=== PATIENT | male | born 1995 | race Caucasian/White ===

== ENCOUNTER 2021-09-03 17:15 | Emergency (ER) | payer SELFPAY ==
[2021-09-03 17:17] VITALS: BP 175/93; PULSE 92; RESP 16; TEMP 36.5; O2SAT 95; BMI 31.3
--- NOTE | 2021-09-03 17:19 | CT_ITS ---
EXAMINATION : Head CT w/out contrast HISTORY : headache. 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 TECHNIQUE : Multiple contiguous axial images were obtained from the skull base to the vertex without intravenous contrast. A radiation dose optimization technique was used for this scan. FINDINGS : The ventricles and sulci are normal in size. There is no evidence for acute intracranial hemorrhage, mass effect, or midline shift. There is no extra-axial fluid collection. There is normal campbell-white differentiation, without CT evidence of acute ischemia or infarct. The skull base and calvarium are unremarkable. The orbits are unremarkable. The paranasal sinuses are clear. The mastoid air cells are well-aerated. The soft tissues are unremarkable. CT/Brain/Head without Contrast IMPRESSION: No acute intracranial abnormality. Electronically Signed: Daniel Vanessa MD at 17:54 EDT ,
[2021-09-03] MEDS: Tetracaine 0.5% Ophthalmic Bottle 1 DRP LEFT EYE (17:30)
[2021-09-03] MEDS: Fluorescein 1 MG STRIP 1 STRIP LEFT EYE (17:31)
--- NOTE | 2021-09-03 17:51 | EX.ED.DYSGE1 ---
HPI <JUVENAL Callahan - Last Filed: 09/03/21 18:19> History of Present Illness Chief Complaint: Headache Narrative Narrative: 26-year-old male with no significant medical history presents the emergency department with left eye pain. Patient states he took a nap after work, woke up, had vision changes to his left eye, he then had pain to his left eye and had difficulty opening it. Patient states that this developed a headache to the left side. He was unable to open his eye due to the pain, he was light sensitive. Patient denies any known injury. States he was fine when he woke up after the nap however when he did not have any vision he rubbed it very aggressively. He states that his vision is back however is slightly blurry. However his eye, nose is running. PFSH <JUVENAL Callahan - Last Filed: 09/03/21 18:19> [facility] Medical History no medical history Home Medications No Known/Unobtainable [No Known Home Medications] 06/10/16 [History Last Taken Unknown] Allergy/AdvReac Type Severity Reaction Status Date / Time No Known Allergies Allergy Verified 06/10/16 13:29 Social History Smoking Status: Never smoker ROS <JUVENAL Callahan - Last Filed: 09/03/21 18:19> ROS ED ROS Narrative Constitutional: Negative for fever, chills, weight loss, weakness Eyes: Negative for double vision. Positive for vision change, left eye pain ENT: Negative for any sore throat, ear pain, congestion Cardiovascular: Negative for any chest pain, tightness, palpitations Respiratory: Negative for any cough, sputum production, hemoptysis, dyspnea, dyspnea on exertion, orthopnea Gastrointestinal: Negative for any abdominal pain, nausea, vomiting, diarrhea, constipation, blood in stool, blood in vomit : Negative for any urinary frequency, dysuria, retention, blood in urine Muscle skeletal: Negative for any muscle joint pain, stiffness, myalgias, arthralgias, neck pain, back pain Neurological: Negative for any headache, syncope, numbness or tingling, dizziness Skin: Negative for any rashes, lumps, itching, abrasions, lacerations Psychiatric: Negative for any depression, anxiety, stress, suicidal ideation, homicidal ideation Hematologic: Negative for any easy bruising, excessive bruising, easy bleeding Allergies: Negative for any eczema, hives, rash EXAM <JUVENAL Callahan - Last Filed: 09/03/21 18:19> Physical Exam Narrative Exam Narrative: Vital signs reviewed. HEET: Head normocephalic atraumatic, TMs clear bilaterally. Posterior pharynx is clear, moist mucous membranes. Nares clear bilaterally. Pupils are equal round reactive light, patient was unable to open his left eye secondary to pain. I did administer tetracaine to the left eye, immediately after initially tetracaine, patient was able to open his eye, patient's left-sided headache decreased, he states that this helped him immensely. I did fluorescein the left eye showing small corneal abrasion to the 3:00 area. No foreign body seen. Optic pressures were taken, pressure was normal with 13. Visual acuity was completed. Neck: Supple with no lymphadenopathy or tenderness. No signs of meningismus, negative jolt sign. Cardiac: Regular rate and rhythm no murmurs gallops or rubs, equal peripheral pulses bilaterally. Respiratory: Lungs clear to auscultation bilaterally. No chest tenderness. Abdomen: Soft, nontender, nondistended. No abdominal bruit or pulsatile masses. No hepatosplenomegaly Extremities: No peripheral edema, no signs of gross trauma or deformity. Active full range of motion of all extremities. Neuro: Cranial nerves II through XII intact, no focal neurological deficits. Skin: Clean dry and intact with no rash, purpura, petechiae, vesicles or pustules. Backs/flank: No CVA tenderness, no midline spinal tenderness, no deformity. Psych: Normal mood and affect. No SI, HI or acute psychosis. Const Vital Signs: 09/03/21 17:17 Temperature 97.7 F L Temperature Source Oral Pulse Rate 92 Respiratory Rate 16 Blood Pressure 175/93 H Blood Pressure Mean 120 Pulse Ox 95 Oxygen Delivery Method Room Air Positive well nourished and well developed General Appearance ED: well developed <Dr. Juancho Krishnamurthy, DO - Last Filed: 09/03/21 18:26> Physical Exam Const Vital Signs: 09/03/21 17:17 Temperature 97.7 F L Temperature Source Oral Pulse Rate 92 Respiratory Rate 16 Blood Pressure 175/93 H Blood Pressure Mean 120 Pulse Ox 95 Oxygen Delivery Method Room Air MDM <JUVENAL Callahan - Last Filed: 09/03/21 18:19> [facility] Narrative Medical decision making narrative: Patient appears to be in minor distress secondary to left eye pain on upon arrival. Upon initial examination, CT was ordered secondary to the patient states he losing vision in his left eye. However after tetracaine administration, patient immediately had relief, was able open his eye, his headache became markedly improved. Patient did receive a CT scan of the brain this showed no acute intercranial abnormality. The patient's optic pressure was checked, it was 13 which is normal. Patient did receive fluorescein staining, there was a corneal abrasion to the 3:00 section of the eye. Visual acuity was completed, patient was given erythromycin ointment and will continue this 4 times a day for 5 days. He will receive ophthalmology follow-up, instructed return for any worsening eye pain, fever chills nausea vomiting. At this time, there is no evidence of any stroke, CVA, glaucoma. Patient be diagnosed with 1. Left eye corneal abrasion Lab Data Attestation: I reviewed the patient's lab results. Radiography Diagnostic Testing: Clinical Impression(s) from Imaging Studies Brain CT 09/03/21 17:19 IMPRESSION: No acute intracranial abnormality. Electronically Signed: Daniel Vanessa MD at 17:54 EDT , <Dr. Juancho Krishnamurthy, DO - Last Filed: 09/03/21 18:26> [facility] Narrative Medical decision making narrative: I have personally performed a face to face assessment of the patient and have reviewed the BRIAN Note. I performed a substantive portion of the visit including all aspects of the following. My veliz findings include: History: Patient presents with headache and left eye pain that began today. Patient states he woke up and was having pain in his left eye. Patient was having difficulty opening his left eye due to the pain. Patient does not think there is any trauma or foreign body to the left eye. Patient admits to headache over the left side of his head. Patient denies any fevers or chills. Patient denies any nausea or vomiting. Exam: Vital signs are stable. Patient is afebrile. Patient is in no acute distress. Pupils are equal, round, and reactive to light bilaterally. Extraocular muscles are intact. Conjunctiva is clear. There are no foreign bodies noted. There is a corneal abrasion noted. Medical Decision Making: CT scan of the brain was obtained. There is no acute intracranial abnormality. This was interpreted by the radiologist and reviewed by myself. Tetracaine and fluorescein dye was applied. Intraocular pressure was measured at 13. Patient was given a dose of erythromycin ophthalmic ointment here. Patient was instructed to apply this 4 times daily while awake. Patient understood and was agreeable with the plan. All questions were answered. Radiography Diagnostic Testing: Clinical Impression(s) from Imaging Studies Brain CT 09/03/21 17:19 IMPRESSION: No acute intracranial abnormality. Electronically Signed: Danile Vanessa MD at 17:54 EDT , Discharge Plan Triage Chief Complaint: Headache ED Midlevel Provider: Manoj Wooten ED Provider: Juancho Krishnamurthy Dx/Rx/DC Orders Clinical Impression: Abrasion, corneal Instructions: Corneal Injury Prescriptions: No Action No Known Home Medications RF: 0 Primary Care Provider: Care Physician,No Primary Referrals: Arturo Lorenzo MD [STAFF PHYSICIAN] - Care Physician,No Primary [Primary Care Provider] - Activity Restrictions/Additional Instructions: Use the erythromycin ointment 4 times a day for 5 days. You need to follow-up with ophthalmology. Return for any worsening symptoms. Print Language: [place] Disposition Disposition: Home, Self Care Discharge Date/Time: 09/03/21 18:25
[2021-09-03] MEDS: Erythromycin Ophthalmic (NSY) 1 GM OPTH.TUBE 1 APPLIC LEFT EYE (17:57)
--- NOTE | 2021-09-03 18:02 | NURSING ---
pt feeling better afterr tetracaine in. teaching given on eye opthalmic ointment
== END 2021-09-03 18:25 | disposition home or self-care (01) ==
PROVIDERS: Emergency Provider Emergency Medicine; Visit Provider Emergency Medicine
DX: S05.00XA Injury of conjunctiva and corneal abrasion without foreign body, unspecified eye, initial encounter (principal); R51.9 Headache, unspecified; X58.XXXA Exposure to other specified factors, initial encounter
CPT/HCPCS: 70450; 99282

== ENCOUNTER 2021-10-19 11:23 | Emergency (ER) | payer OTHER, SELFPAY ==
[2021-10-19 11:24] VITALS: BP 148/88; PULSE 84; RESP 16; TEMP 36.6; O2SAT 98; BMI 32.2
--- NOTE | 2021-10-19 11:27 | ED.RN ---
PT MANDATORY DRUG TESTING COMPLETED PRIOR TO ARRIVAL AT [facility] PER [facility]
--- NOTE | 2021-10-19 11:39 | CT_ITS ---
STUDY: CT ABDOMEN AND PELVIS WITHOUT CONTRAST REASON FOR EXAM: Male, 26 years old. Anterior abdominal wall injury. RADIATION DOSAGE (If Supplied By Facility): CTDIvol = ( 20.31 ) mGy, DLP = ( 1222.71 ) mGycm TECHNIQUE: Transaxial images were obtained from the dome of the diaphragm to the symphysis pubis without oral contrast, and without intravenous contrast. Sagittal and coronal images were reconstructed. Individualized dose optimization techniques were used for this CT. COMPARISON: None. FINDINGS: The visualized lung bases are unremarkable. The visualized portions of the heart are within normal limits. There is decreased attenuation of the liver consistent with steatosis. Normal gallbladder and extrahepatic biliary system. Normal spleen. Normal pancreas. Normal bilateral adrenal glands. Normal right kidney. Normal left kidney. Normal visualized stomach. Normal small intestine. Normal colon. The appendix is visualized and appears normal. Normal abdominal aorta. Normal inferior vena cava. Normal retroperitoneum. Normal urinary bladder. Normal abdominal wall. Normal osseous structures. CT/Abdomen/Pelvis without Cont IMPRESSION: Fatty infiltration of the liver. Electronically Signed: Eric Jasso MD at 12:30 EDT ,
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
[2021-10-19] MEDS: Ondansetron ODT 4 MG Tablet PO (11:54)
[2021-10-19] MEDS: Naproxen 500 MG Tablet PO (11:54)
== END 2021-10-19 13:36 | disposition home or self-care (01) ==
PROVIDERS: Emergency Provider Emergency Medicine; Visit Provider Emergency Medicine
DX: S30.1XXA Contusion of abdominal wall, initial encounter (principal); R19.7 Diarrhea, unspecified; W31.89XA Contact with other specified machinery, initial encounter; Y99.0 Civilian activity done for income or pay
CPT/HCPCS: 74176; 99284

== ENCOUNTER 2021-10-21 11:24 | Emergency (ER) | payer OTHER, SELFPAY ==
[2021-10-21 11:25] VITALS: BP 147/80; PULSE 98; RESP 14; TEMP 36.2; O2SAT 94; BMI 34.6
[2021-10-21] MEDS: Ondansetron 4 MG/2 ML Vial IV (12:26)
[2021-10-21] MEDS: Ketorolac 15 MG/ML Vial IV (12:26)
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
[2021-10-21 12:43] LABS: Absolute Lymphocyte Count 2.03 X10^3/uL (0.83-4.51); Absolute Neutrophil Count 3.5 X10^3/uL (2.0-7.7); Basophil# 0.03 X10^3/uL; Basophil% 0.5 % (0-1); Eosinophil# 0.05 X10^3/uL; Eosinophils% 0.8 % (0-5); Hematocrit 42.5 % (40-54); Hemoglobin 14.9 g/dL (13.0-16.5); Lymphocyte # 2.03 X10^3/ul (0.83-4.51); Lymphocyte % 34.1 % (19-41); Mean Corp Hgb Conc 35.1 g/dL (32-36); Mean Corpuscular Hgb 30.4 pg (27.0-32.0); Mean Corpuscular Volume 86.7 fL (80-94); Mean Platelet Vol. 10.6 fl (6.2-12.0); Monocyte# 0.36 X10^3/uL; Monocyte% 6.1 % (0-10); NRBC Flagged by Analyzer 0 % (0-5); Neutrophil # 3.46 X10^3/uL (2.7-7.7); Neutrophil % 58.2 % (47-70); Platelet Count 206 K/mm3 (150-450); RBC Distribution Width CV 11.8 % (11.6-14.6); RBC Distribution Width SD 37.3 fl (35.1-43.9)
[2021-10-21 13:01] LABS: ALB/GLOB Ratio 0.9 RATIO (0.9-2.4); AST(SGOT) 24 U/L (15-37); Alanine Aminotransfer ALT/SGPT 64 U/L (16-61); Albumin, Serum 3.7 g/dL (3.2-5.0); Alkaline Phosphatase 50 U/L (45-117); Anion Gap 5 (5-15); BUN 13 mg/dL (7-18); Calcium,Total 9.1 mg/dL (8.5-10.1); Chloride 105 mmol/L (98-107); Creatinine, Serum 1.08 mg/dL (0.70-1.30); EST Glomerular Filtration Rate 89 mL/min (>60); Est Glom Filt Rate - Afr Amer 108 mL/min (>60); Estimated Creatinine Clearance 136.35 ml/min; Globulin 3.9 g/dL (2.2-4.2); Glucose 245 mg/dL (74-106); Potassium 4.1 mmol/L (3.5-5.1); Protein, Total 7.6 g/dL (6.4-8.2); Sodium Level 138 mmol/L (136-145)
[2021-10-21 14:00] VITALS: PULSE 80; RESP 16; O2SAT 97
== END 2021-10-21 14:00 | disposition home or self-care (01) ==
PROVIDERS: Emergency Provider Emergency Medicine; Visit Provider Emergency Medicine
DX: R10.9 Unspecified abdominal pain (principal); T14.90XD Injury, unspecified, subsequent encounter; R73.9 Hyperglycemia, unspecified; E66.9 Obesity, unspecified; Z59.7 Insufficient social insurance and welfare support; Z79.84 Long term (current) use of oral hypoglycemic drugs; X58.XXXD Exposure to other specified factors, subsequent encounter
CPT/HCPCS: 80053; 82274; 85025; 96374; 96375; 99283; A4216; J2405

== ENCOUNTER 2024-04-22 21:42 | Emergency (ER) | payer MEDICAID, SELFPAY ==
[2024-04-22 21:43] VITALS: BP 183/91; PULSE 95; RESP 18; TEMP 36.6; O2SAT 98; BMI 32.9
--- NOTE | 2024-04-22 21:47 | CT_ITS ---
EXAM: CT MAXILLOFACIAL WITHOUT INTRAVENOUS CONTRAST CLINICAL INDICATION: injury TECHNIQUE: Helically acquired images were obtained of the face without intravenous contrast. This CT exam was performed using one or more of the following dose reduction techniques: automated exposure control, adjustment of the mA and/or kV according to patient size, and/or use of iterative reconstruction technique. COMPARISON: No relevant prior studies available. FINDINGS: BONES/JOINTS: Unremarkable. No displaced fracture. No discrete lytic or blastic abnormalities. SOFT TISSUES: Unremarkable. No focal subcutaneous swelling. No discrete fluid collections. ORBITS: Unremarkable. Both globes are unremarkable. Extraocular muscles are normal. Retrobulbar fat appears unremarkable. SINUSES: Unremarkable as visualized. Clear. MASTOID AIR CELLS: Unremarkable as visualized. Clear. DENTAL: No acute findings. No periodontal osseous erosion. CT/Sinus/Facial Bone IMPRESSION: Negative CT facial bones without intravenous contrast. Electronically Signed: Shon Parnell MD at 22:36 EST ,
--- NOTE | 2024-04-22 21:47 | CT_ITS ---
EXAM: CT HEAD WITHOUT INTRAVENOUS CONTRAST CLINICAL INDICATION: head injury TECHNIQUE: Multiple axial images were obtained of the head without intravenous contrast. This CT exam was performed using one or more of the following dose reduction techniques: automated exposure control, adjustment of the mA and/or kV according to patient size, and/or use of iterative reconstruction technique. COMPARISON: 09/03/2021 FINDINGS: BRAIN AND EXTRA-AXIAL SPACES: Unremarkable. No intra- or extra-axial hemorrhage. No evidence of acute infarct. No intracranial mass or mass effect. There is preservation of the casas/white matter interface. Posterior fossa structures are unremarkable. Ventricles are appropriate for age. No hydrocephalus. Basal cisterns are patent. BONES/JOINTS: Unremarkable. No discrete lytic or blastic abnormalities. SINUSES: Unremarkable as visualized. Clear. MASTOID AIR CELLS: Unremarkable. Clear. ORBITS: Visualized globes, extraocular muscles, optic nerves and retrobulbar fat appear unremarkable. CT/Brain/Head without Contrast IMPRESSION: Negative head/brain CT without intravenous contrast. Electronically Signed: Shon Parnell MD at 22:34 EST ,
--- NOTE | 2024-04-22 23:09 | EDS_ITS ---
HPI History of Present Illness Chief Complaint: Head Injury Informant: patient Narrative Narrative: Presents worsening headache blurry vision this morning. No loss of conscious. He had head injury yesterday, hit his head orthodontic assistant him in the basement. States ceilings are low. Did not lose conscious. He was seen at outside hospital he states he had a CT scan that was negative. He had Dermabond placed to his wound. He has had 4 concussions in the past while playing football with worsening symptoms. 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 No nausea or vomiting. No medications taken. Prior similar symptoms: [facility] [place] Medical History Concussion Traumatic brain injury Ascended testicle of both sides Home Medications ?Medication ?Instructions ?Recorded ?Last Taken ?Type metformin 500 mg tablet 500 mg PO DAILY #30 tabs 10/21/21 Unknown Rx Allergy/AdvReac Type Severity Reaction Status Date / Time No Known Allergies Allergy Verified 04/22/24 21:46 Social History household members: significant other Smoking Status: Never smoker substance use type: does not use ROS ROS ED Constitutional Constitutional ED: Denies chills, fever(s) or sweats Eyes Eyes: Reports blurry vision ENT ENT ED: Denies sore throat Cardiovascular Cardiovascular: Denies chest pain, leg edema, palpitations or racing heartbeat Respiratory/Chest Respiratory/Chest: Denies cough, dyspnea or dyspnea on exertion Gastrointestinal Gastrointestinal: Denies abdominal pain, diarrhea, nausea or vomiting Genitourinary Genitourinary ED: Denies dysuria, hematuria or urinary frequency Musculoskeletal Musculoskeletal: Denies back pain, extremity pain or neck pain Integumentary Denies rash or wounds Neurologic Neurologic: Reports headache(s); Denies paresthesias or weakness EXAM Physical Exam Const Vital Signs: 04/22/24 21:43 04/22/24 22:35 Temperature 97.9 F Temperature Source Temporal Pulse Rate 95 Respiratory Rate 18 Respiratory Effort Normal Non-Labored Respiratory Depth Normal Respiratory Pattern Normal Blood Pressure 183/91 H Blood Pressure Mean 121 Pulse Ox 98 Oxygen Delivery Method Room Air Room Air Positive well nourished and well developed Constitutional Narrative: GCS 15. General Appearance ED: well developed and NAD HEENT Reports moist mucous membranes HEENT Narrative: Superficial abrasion right forehead above the brow there is no laceration noted. normocephalic Eyes General Eye ED: Yes normal appearance of both eyes and other Other Details: No hyphema of the eyes. Neck full ROM Neck Narrative: No meningismus. Chest Wall Chest: Negative for tenderness Resp normal respiratory effort and normal air movement Effort and Inspection: symmetric chest movement; Negative for respiratory distress Cardio regular rate, regular rhythm and no murmurs Peripheral Pulses: pulses 2+ throughout GI normal to inspection, nondistended, normoactive bowel sounds and non-tender Palpation: Negative for guarding or rebound tenderness present Extremity normal to inspection General Extremety ED: Negative for edema or tenderness General Extremity: Negative for edema Neuro oriented x3, CN's II-XII intact bilaterally and no sensory deficits noted Sensorium / Orientation: awake and alert Skin no rashes or lesions noted and no wounds MDM MDM MDM Narrative Medical decision making narrative: Interventions / MDM: Differential diagnosis: Concussion Diagnosis considered but do not suspect: Intracranial hemorrhage, fracture however CT negative. My EKG interpretation: N/A Imaging independently reviewed and interpreted by myself: CT brain: No acute process. CT facial bones, no fractures. Also read by radiology. External documents reviewed: N/A Test considered but not ordered:N/A ED course: Patient worsening symptoms after head injury yesterday. Trauma scans brain and facial bones ordered through triage. Results negative. Concussion discussed with the patient. He started on Tylenol. Brain rest discussed. Follow-up with neurology given. Work note given. All questions were answered. Re-evaluation: stable Disposition discussed with patient/family/significant other: Patient Case discussed with consulting clinician: N/A This note was generated with [employer] dictation software. It may contain incorrect words, spelling, and punctuation that were not noted in checking the note before signing. Radiography Diagnostic Testing: Clinical Impression(s) from Imaging Studies Brain CT 04/22/24 21:47 IMPRESSION: Negative head/brain CT without intravenous contrast. Electronically Signed: Shon Parnell MD at 22:34 EST , Facial/Sinus 04/22/24 21:47 IMPRESSION: Negative CT facial bones without intravenous contrast. Electronically Signed: Shon Parnell MD at 22:36 EST , Discharge Plan Triage Chief Complaint: Head Injury ED Provider: Rajan Szymanski Dx/Rx/DC Orders Clinical Impression: Concussion, CHI (closed head injury) Instructions: ED Concussion Prescriptions: No Action metformin 500 mg tablet 500 mg PO DAILY Qty: 30 0RF Stand Alone Forms: ED Work / School Excuse Primary Care Provider: Care Physician,No Primary Referrals: Kenyon Collazo MD [Non-Staff -Ordering Privileges] - 1-2 Weeks Care Physician,No Primary [Primary Care Provider] - Activity Restrictions/Additional Instructions: CT brain negative. CT facial bones negative. Use Tylenol up to 1 g every 6 hours as needed for headache symptoms. Follow-up with neurology. Print Language: Pashto Disposition Disposition: Home, Self Care
[2024-04-22] MEDS: Acetaminophen 500 MG Tablet 1000 MG PO (23:18)
== END 2024-04-22 23:20 | disposition home or self-care (01) ==
PROVIDERS: Emergency Provider Emergency Medicine; Referring Provider Emergency Medicine; Visit Provider Emergency Medicine
DX: S06.0X0A Concussion without loss of consciousness, initial encounter (principal); W22.09XA Striking against other stationary object, initial encounter
CPT/HCPCS: 70450; 70486; 99282

== ENCOUNTER 2025-01-01 09:23 | Emergency (ER) | payer OTHER, SELFPAY ==
[2025-01-01 09:24] VITALS: BP 123/90; PULSE 90; RESP 16; TEMP 36.6; O2SAT 98; BMI 31.7
--- NOTE | 2025-01-01 09:30 | ED.RN ---
Patient offered FROI. Patient states he does not want to do workers comp. Patient explained the process and benefits of workers comp. Patient continues to state he does not want to do workers comp at this time.
--- NOTE | 2025-01-01 09:34 | ED.VIS.LOWEX ---
HPI History of Present Illness HPI Narrative: Patient presents with a right knee injury that occurred 1 week ago. Patient states he was climbing up onto a step that was approximately 3 feet high. Patient states that when he was pulling himself up, he felt a pop in his right knee. Patient noted some swelling to his right knee at that time. Patient states the pain has been persistent. Patient states he has been taking ibuprofen with some relief. Patient states his pain is worse with any movement. Patient states it is better with rest. Patient denies any paresthesias or weakness. Patient denies any other injuries. Chief Complaint: Lower Extremity Injury Onset/Context/Timing Onset: Weeks (1) Context: Sudden Onset Timing: Continuous Quality of Pain: Aching Location: Right knee Worsened by: Movement Relieved by: Rest Associated Symptoms Associated Symptoms: Negative for Parasthesia, Weakness or Loss of Funtion [facility] Medical History (Updated 01/01/25 @ 10:[address] Juancho Krishnamurthy DO) Concussion Traumatic brain injury Ascended testicle of both sides Home Medications ?Medication ?Instructions ?Recorded ?Last Taken ?Type metformin 500 mg tablet 500 mg PO DAILY #30 tabs 10/21/21 Unknown Rx Allergy/AdvReac Type Severity Reaction Status Date / Time No Known Allergies Allergy Verified 04/22/24 21:46 Surgical History (Updated 01/01/25 @ 09:[address] Juancho Krishnamurthy DO) History of testicular surgery Social History household members: significant other Smoking Status: Never smoker substance use type: does not use ROS ROS ED Constitutional Constitutional ED: Denies chills or fever(s) Eyes Eyes: Denies blurry vision or change in vision ENT ENT ED: Denies rhinorrhea or sore throat Cardiovascular Cardiovascular: Denies chest pain or palpitations Respiratory/Chest Respiratory/Chest: Denies cough or dyspnea Gastrointestinal Gastrointestinal: Denies nausea or vomiting Genitourinary Genitourinary ED: Denies dysuria or hematuria Musculoskeletal Musculoskeletal: Reports back pain and neck pain Integumentary Denies abscess or rash Neurologic Neurologic: Denies headache(s) or weakness Allergic/Immunologic Allergic/Immunologic ED: Denies mouth swelling or urticaria EXAM Physical Exam Const Vital Signs: 01/01/25 09:24 Temperature 98 F Temperature Source Oral Pulse Rate 90 Respiratory Rate 16 Blood Pressure 123/90 H Blood Pressure Mean 101 Pulse Ox 98 Oxygen Delivery Method Room Air Positive well nourished and well developed General Appearance ED: well developed and NAD HEENT Reports moist mucous membranes Neck full ROM and supple Extremity Extremity Narrative: There is tenderness and a mild effusion over the right knee. There is no erythema or warmth noted. There is no obvious deformity noted. Range of motion was limited in all motions of the right knee secondary to pain. There is some guarding on exam. There is questionable laxity with Dinah's testing. There is no laxity with varus and valgus stress testing. There is mild pain with Leatha testing. Strength is 5/5 bilaterally in the lower extremities. Extensor mechanism is intact. There are no sensory deficits noted. Pedal pulses are equal bilaterally. Neuro oriented x3, CN's II-XII intact bilaterally, moves all extremities and no sensory deficits noted Sensorium / Orientation: alert Motor Exam: strength 5/5 throughout Psych mental status grossly normal MDM MDM MDM Narrative Medical decision making narrative: Differential diagnosis includes ligament sprain, meniscus tear, and occult fracture. X-rays of the right knee will be obtained to assess for occult fracture. History & Record Review Additional record(s) reviewed:: Prior ED visit Radiography Diagnostic Testing: Clinical Impression(s) from Imaging Studies Knee X-Ray 01/01/25 09:58 IMPRESSION: Joint effusion. No fracture or dislocation. Reading Location: [facility] X-rays of the right knee were obtained. There are 4 views. On my independent interpretation, there is no acute fracture or dislocation noted. There is a small joint effusion noted. Radiologist also interpreted the x-rays and agrees. Treatment and Re-Evaluation Narrative: Patient was advised of this findings. Patient was advised that this could be a sprain of his ligaments as well as a meniscal injury. Patient was instructed to ice and elevate the right knee. Patient was instructed to continue with ibuprofen as needed for pain. Patient was instructed to do range of motion exercises after icing his knee. Patient was instructed to use a brace as needed. Patient was instructed to return if worse in any way. Patient was given a referral for orthopedics. Patient was instructed to follow-up with his primary care physician in 5 to 7 days as well. Patient understood and was agreeable with the plan. All questions were answered. Discharge Plan Triage Chief Complaint: Lower Extremity Injury ED Provider: Juancho Krishnamurthy Dx/Rx/DC Orders Clinical Impression: Right knee sprain, Chewing tobacco use Instructions: ED Knee Sprain Prescriptions: No Action metformin 500 mg tablet 500 mg PO DAILY Qty: 30 0RF Primary Care Provider: Care Physician,No Primary Referrals: Kaykay Fowler MD [Med Staff - Set Off Press Operator, Internal Medicine] - 5-7 Days Anil Echavarria MD [Med Staff - Active Staff, Orthopedics] - 5-7 Days Care Physician,No Primary [Primary Care Provider, Medical] Print Language: Citizen Of [place] Disposition Disposition: Home, Self Care
--- NOTE | 2025-01-01 09:58 | RAD_ITS ---
PROCEDURE: KNEE 4 OR MORE VIEWS 01/01/2025 REASON FOR EXAM: INJURY/PAIN TECHNIQUE: Procedure Code: RADKN Modality: DX Procedure: KNEE 4 OR MORE VIEWS Laterality: Right knee COMPARISON: None FINDINGS: Bones: No fracture. No suspicious bone lesion. Joints: Normal alignment. Mild degenerative changes. Effusion: Small joint effusion. Soft tissues: Soft tissues are unremarkable. Other: RAD/Knee 4 or More Views IMPRESSION: Joint effusion. No fracture or dislocation. Reading Location: [id number]
[2025-01-01 10:30] VITALS: BP 128/71; PULSE 74; RESP 16; TEMP 36.6; O2SAT 98
== END 2025-01-01 10:31 | disposition home or self-care (01) ==
PROVIDERS: Emergency Provider Emergency Medicine; Visit Provider Emergency Medicine
DX: S83.91XA Sprain of unspecified site of right knee, initial encounter (principal); F17.220 Nicotine dependence, chewing tobacco, uncomplicated; X58.XXXA Exposure to other specified factors, initial encounter
CPT/HCPCS: 73564; 99282